=== PATIENT | female | born 1980 | race Caucasian/White ===

== ENCOUNTER 2022-03-26 13:29 | Outpatient (CLI) | payer BC | END 2022-03-26 13:30 | disposition home or self-care (01) | LOC: BICMRI 13:29 | PROVIDERS: ATTEND Otolaryngology Plastic Surgery within the Head & Neck | DX: D44.6 Neoplasm of uncertain behavior of carotid body (principal) | CPT/HCPCS: 70543 ==

== ENCOUNTER 2022-07-18 14:39 | Outpatient (CLI) | payer BC | END 2022-07-18 14:40 | disposition home or self-care (01) | LOC: BICMRI 14:39 | PROVIDERS: ATTEND Neurological Surgery | DX: M54.12 Radiculopathy, cervical region (principal) | CPT/HCPCS: 72141 ==

== ENCOUNTER 2024-08-22 11:43 | Emergency (ER) | payer BC | END 2024-08-22 13:20 | disposition home or self-care (01) | LOC: ERS 11:43 | DX: S09.90XA Unspecified injury of head, initial encounter (principal); W55.82XA Struck by other mammals, initial encounter | CPT/HCPCS: 70486 ==

== ENCOUNTER 2025-06-23 11:47 | Outpatient (CLI) | payer BC | END 2025-06-23 11:48 | disposition home or self-care (01) | LOC: BICMAMMO 11:47 | PROVIDERS: ATTEND Nurse Practitioner Family | DX: Z12.31 Encounter for screening mammogram for malignant neoplasm of breast (principal); Z80.3 Family history of malignant neoplasm of breast; Z98.82 Breast implant status | CPT/HCPCS: 77063; 77067 ==